=== PATIENT | male | born 1950 | race Caucasian/White ===

== ENCOUNTER 2024-04-13 09:27 | Emergency (ER) | payer OTHER ==
[2024-04-13 10:08] VITALS: BP 142/81; PULSE 87; RESP 16; TEMP 97.7; BMI 30.5
== END 2024-04-13 10:50 | disposition home or self-care (01) ==
LOC: JERFT 09:27
DX: H61.23 Impacted cerumen, bilateral (principal)
CPT/HCPCS: 99282-25